=== PATIENT | female | born 1995 | race Caucasian/White ===

== ENCOUNTER 2017-10-22 21:38 | Emergency (ER) | payer BC, MEDICAID ==
[2017-10-22] MEDS ORDERED: FAMOTIDINE 20MG TAB 20 MG TAB ONE (22:05)
[2017-10-22] MEDS ORDERED: PREDNISONE 20 MG TABLET ONE (22:05)
== END 2017-10-22 23:01 | disposition home or self-care (01) ==
LOC: EDH 21:38
DX: T78.40XA Allergy, unspecified, initial encounter (principal); X58.XXXA Exposure to other specified factors, initial encounter